=== PATIENT | male | born 1980 ===

== ENCOUNTER 2020-04-18 20:55 | Emergency (ER) | payer SELFPAY ==
[~2020-04-18] VITALS: Ht 170 cm; Wt 108.0 kg
[2020-04-18] MEDS ORDERED: LACTATED RINGERS 1,000 ML IV ONE (21:22)
[2020-04-18] MEDS ORDERED: BENZONATATE 100 MG (TESSALON) CAPSULE PO ONE (21:30)
[2020-04-18] MEDS ORDERED: KETOROLAC 30 MG/ML VIAL IVP ONE (21:30)
[2020-04-18 21:33] LABS: BASOPHILS % (AUTO) 0 % (0-10); EOSINOPHILS # (AUTO) 0.1 10^3/uL (0.0-0.3); EOSINOPHILS % (AUTO) 2 % (0-10); HEMATOCRIT 41 % (40-54); LYMPHOCYTES % (AUTO) 31 % (12-44); MEAN CORPUSCULAR HEMOGLOBIN 30 PG (25-34); MEAN CORPUSCULAR HGB CONC 36 G/DL (32-36); MEAN CORPUSCULAR VOLUME 82 FL (80-99); MEAN PLATELET VOLUME 8.9 FL (7.4-10.4); MONOCYTES # (AUTO) 0.5 X 10^3 (0.0-1.0); MONOCYTES % (AUTO) 8 % (0-12); NEUTROPHILS # (AUTO) 3.9 X 10^3 (1.8-7.8); NEUTROPHILS % (AUTO) 59 % (42-75); PLATELET COUNT 201 10^3/uL (130-400); WHITE BLOOD COUNT 6.5 10^3/uL (4.3-11.0)
[2020-04-18 21:52] LABS: ALANINE AMINOTRANSFERASE 64 U/L (0-55); ALBUMIN 4.4 GM/DL (3.2-4.5); ALKALINE PHOSPHATASE 97 U/L (40-136); BILIRUBIN,TOTAL 0.4 MG/DL (0.1-1.0); BUN/CREATININE RATIO 15; CALCIUM 8.7 MG/DL (8.5-10.1); CARBON DIOXIDE 22 MMOL/L (21-32); CHLORIDE 104 MMOL/L (98-107); GFR ESTIMATED > 60; GLUCOSE 171 MG/DL (70-105); POTASSIUM 3.8 MMOL/L (3.6-5.0); SODIUM 139 MMOL/L (135-145); TOTAL PROTEIN 7.6 GM/DL (6.4-8.2)
[2020-04-18] MEDS ORDERED: BENZ100C18 PO (22:08)
--- NOTE | 2020-04-18 22:08 | ED General ---
General Chief Complaint: Cough/Cold/Flu Symptoms Stated Complaint: FEVER,COUGH,COVID +,HEADACHE Nursing Triage Note: C/O WIGGINS/COUGH X9 DAYS WORSE LAST NIGHT. DIARRHEA TODAY. REPORTS COVID POSITIVE. Nursing Sepsis Screen: Possible Severe Sepsis Risk Source of Information: Patient Exam Limitations: No Limitations History of Present Illness Date Seen by Provider: Apr 18, 2020 Time Seen by Provider: 21:18 Initial Comments This 40-year-old gentleman with known COVID-19 presents to the emergency room with complaints of worsening cough and headache. He has been taking Tylenol without much benefit. He is also been having significant diarrhea. He is tachycardic and appears dry with pasty mucous membranes. He is about 10 days into his illness. He has normal oxygen saturations on room air and is not in respiratory distress. Allergies and Home Medications Allergies Coded Allergies: No Known Drug Allergies (Unverified , 04/18/20) Home Medications Benzonatate 100 Mg Capsule, 200 MG PO TID PRN for COUGH Prescribed by: KAYCE TORRES on 04/18/20 2208 Patient Home Medication List Home Medication List Reviewed: Yes Review of Systems Review of Systems Constitutional: see HPI, fever EENTM: see HPI Respiratory: see HPI Cardiovascular: no symptoms reported Gastrointestinal: see HPI Genitourinary: no symptoms reported Musculoskeletal: no symptoms reported Skin: no symptoms reported Psychiatric/Neurological: See HPI Hematologic/Lymphatic: No Symptoms Reported Immunological/Allergic: no symptoms reported Past Lelbfzo-Amelkk-Jsefzz Hx Past Med/Social Hx: Reviewed Nursing Past Med/Soc Hx Patient Social History Alcohol Use: Occasionally Uses Alcohol Beverage of Choice: Beer Recreational Drug Use: No Smoking Status: Never a Smoker 2nd Hand Smoke Exposure: No Recent Foreign Travel: No Contact w/Someone Who Travel: No Recent Infectious Disease Expo: No Recent Hopitalizations: No Physical Abuse: No Sexual Abuse: No Mistreated: No Fear: No Immunizations Up To Date Tetanus Booster (TDap): Unknown Seasonal Allergies Seasonal Allergies: No Past Medical History Surgeries: No Respiratory: No Cardiac: No Neurological: No Genitourinary: No Gastrointestinal: No Musculoskeletal: No Endocrine: No HEENT: No Cancer: No Psychosocial: No Integumentary: No Blood Disorders: No Physical Exam Vital Signs Vital Signs - First Documented Capillary Refill : Less Than 3 Seconds Height, Weight, BMI Height: '" Weight: lbs. oz. 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 Norm as Tested Skin: Normal Color, Warm/Dry Progress/Results/Core Measures Suspected Sepsis Recent Fever Within 48 Hours: Yes Infection Criteria Present: Documented Infection New/Unexplained Altered Menta: No Sepsis Screen: Possible Severe Sepsis Risk SIRS Temperature: Pulse: 122 Respiratory Rate: 20 Laboratory Tests 04/18/20 21:23: White Blood Count 6.5 Blood Pressure 157 /102 Mean: 120 Laboratory Tests 04/18/20 21:23: Creatinine 0.80, Platelet Count 201, Total Bilirubin 0.4 Results/Orders Lab Results Laboratory Tests Test 04/18/20 21:23 Range/Units White Blood Count 6.5 4.3-11.0 10^3/uL Red Blood Count 5.04 4.35-5.85 10^6/uL Hemoglobin 15.0 13.3-17.7 G/DL Hematocrit 41 40-54 % Mean Corpuscular Volume 82 80-99 FL Mean Corpuscular Hemoglobin 30 25-34 PG Mean Corpuscular Hemoglobin Concent 36 32-36 G/DL Red Cell Distribution Width 12.0 10.0-14.5 % Platelet Count 201 130-400 10^3/uL Mean Platelet Volume 8.9 7.4-10.4 FL Neutrophils (%) (Auto) 59 42-75 % Lymphocytes (%) (Auto) 31 12-44 % Monocytes (%) (Auto) 8 0-12 % Eosinophils (%) (Auto) 2 0-10 % Basophils (%) (Auto) 0 0-10 % Neutrophils # (Auto) 3.9 1.8-7.8 X 10^3 Lymphocytes # (Auto) 2.0 1.0-4.0 X 10^3 Monocytes # (Auto) 0.5 0.0-1.0 X 10^3 Eosinophils # (Auto) 0.1 0.0-0.3 10^3/uL Basophils # (Auto) 0.0 0.0-0.1 10^3/uL Sodium Level 139 135-145 MMOL/L Potassium Level 3.8 3.6-5.0 MMOL/L Chloride Level 104 98-107 MMOL/L Carbon Dioxide Level 22 21-32 MMOL/L Anion Gap 13 5-14 MMOL/L Blood Urea Nitrogen 12 7-18 MG/DL Creatinine 0.80 0.60-1.30 MG/DL Estimat Glomerular Filtration Rate > 60 BUN/Creatinine Ratio 15 Glucose Level 171 H 70-105 MG/DL Calcium Level 8.7 8.5-10.1 MG/DL Corrected Calcium 8.4 L 8.5-10.1 MG/DL Magnesium Level 2.0 1.6-2.4 MG/DL Total Bilirubin 0.4 0.1-1.0 MG/DL Aspartate Amino Transf (AST/SGOT) 42 H 5-34 U/L Alanine Aminotransferase (ALT/SGPT) 64 H 0-55 U/L Alkaline Phosphatase 97 40-136 U/L Total Protein 7.6 6.4-8.2 GM/DL Albumin 4.4 3.2-4.5 GM/DL My Orders Orders - KAYCE HUITRON MD Ed Iv/Invasive Line Start (04/18/20 21:22) Lactated Ringers (Lr 1000 Ml Iv Solution (04/18/20 21:22) Ketorolac Injection (Toradol Injection) (04/18/20 21:30) Cbc With Automated Diff (04/18/20 21:22) Comprehensive Metabolic Panel (04/18/20 21:22) Magnesium (04/18/20 21:22) Benzonatate Capsule (Tessalon Perles) (04/18/20 21:30) Medications Given in ED Current Medications Medications Dose Ordered Sig/Felix Route Start Time Stop Time Status Last Admin Dose Admin Benzonatate 200 mg ONCE ONCE PO 04/18/20 21:30 04/18/20 21:31 DC 04/18/20 21:30 200 MG Ketorolac Tromethamine 30 mg ONCE ONCE IVP 04/18/20 21:30 04/18/20 21:31 DC 04/18/20 21:30 30 MG Lactated Ringer's 1,000 ml @ 0 mls/hr Q0M ONCE IV 04/18/20 21:22 04/18/20 21:25 DC 04/18/20 21:30 0 MLS/HR Vital Signs/I&O 04/18/20 04/18/20 04/18/20 04/18/20 21:25 21:25 21:30 22:10 Temp 38.0 38.0 37.6 Pulse 122 97 Resp 20 18 B/P (MAP) 157/102 (120) 137/80 (120) Pulse Ox 96 99 O2 Delivery Room Air Room Air Room Air 04/19/20 00:00 Intake Total 1000 ml Balance 1000 ml Capillary Refill : Less Than 3 Seconds Blood Pressure Mean: 120 Progress Note : Progress Note Patient was rather tachycardic. He was treated with a liter of IV fluid. Toradol was given for headache. This improved his symptoms significantly and his tachycardia decreased by about 25 bpm. He was given Tessalon Perles for his cough. He was satisfied with his improvement and was discharged home. Blood morgan gar was elevated. Patient has known diabetes. He was advised to monitor his blood sugars and consume a low sugar, low carbohydrate diet. Departure Impression Primary Impression: Hypovolemia Additional Impressions: Acute headache Qualified Codes: R51 - Headache Hyperglycemia COVID-19 Disposition: 01 HOME, SELF-CARE Condition: Improved Departure-Patient Inst. Decision time for Depature: 22:05 Referrals: [facility] (PCP/Family) Primary Care Physician Patient Instructions: COVID19 Add. Discharge Instructions: Drink plenty of clear liquids to stay well-hydrated. Your blood sugars a little high. Eat a low sugar, low carbohydrate diet and monitor your blood sugars. For pain take Tylenol (acetaminophen) up to 1000 mg every 6 hours as needed. Fo r pain not controlled by Tylenol. May take ibuprofen up to 600 mg every 6 hours as needed. Call your doctor or return to emergency room if you have worsening symptoms. Please call the emergency room before you return so we know your coming. You may use Tessalon Perles as prescribed for cough. All discharge instructions reviewed with patient and/or family. Voiced understanding. Scripts Benzonatate (TESSALON PERLES) 100 Mg Capsule 200 MG PO TID PRN for COUGH, #20 CAP Prov: KAYCE HUITRON MD 04/18/20 Copy Copies To 1: ILEANA HAN JOSHUA T MD Apr 18, 2020 22:08
[2020-04-18 22:10] VITALS: BP 137/80
== END 2020-04-18 22:12 | disposition home or self-care (01) ==
LOC: ER 20:57
DX: E86.1 Hypovolemia (principal); R51 Headache; R73.9 Hyperglycemia, unspecified; U07.1 COVID-19
CPT/HCPCS: 36415; 80053; 83735; 85025